=== PATIENT | male | born 1960 | race Two or more races ===

== ENCOUNTER 2025-03-19 08:45 | Day surgery (SDC) | payer MEDICARE, MEDICAID, SELFPAY ==
--- NOTE | 2025-03-16 06:35 | EKG_ITS ---
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
[2025-03-16 09:26] VITALS: BMI 27.2
[2025-03-16 10:05] LABS: Basophils # (Auto) 0.1 Thou/mm3 (0.0-0.2); Basophils % (Auto) 1 % (0-2.5); Eosinophils # (Auto) 1.8 Thou/mm3 (0.0-0.5); Eosinophils % (Auto) 12 % (0-10); Hematocrit 41.6 % (41.0-53.0); Hemoglobin 13.5 g/dL (13.5-16.0); Immature Granulocytes Auto 0.04 Thou/mm3 (0.00-0.00); Lymphocytes # (Auto) 3.2 Thou/mm3 (1.0-4.8); Lymphocytes % (Auto) 22 % (10-50); Mean Corpuscular HGB Conc 32.5 g/dl (31.0-37.0); Mean Corpuscular Hemoglobin 25.0 pg (25.0-35.0); Mean Corpuscular Volume 77 fL (80-100); Monocytes # (Auto) 1.1 Thou/mm3 (0.0-0.8); Monocytes % (Auto) 8 % (0-12); Neutrophils # (Auto) 8.5 Thou/mm3 (1.8-7.7); Neutrophils % (Auto) 58 % (37-80); Nucleated Red Blood Cell # 0.00 Thou/mm3 (0.00-0.00); Nucleated Red Blood Cell % 0 /100 WBC (0); Platelet Count 293 Thou/mm3 (140-440); RDW Standard Deviation 44.6 fL (35.1-43.9); Red Blood Count 5.40 Miln/mm3 (4.50-5.90); White Blood Count 14.7 Thou/mm3 (3.8-10.6)
[2025-03-16 10:14] LABS: INR 1.0 (0.9-1.3); Partial Thromboplastin Time 25.9 Seconds (22.0-36.0); Prothrombin Time 10.9 Seconds (9.0-12.2)
[2025-03-16 10:29] LABS: Alanine Aminotransferase < 7 U/L (10-49); Albumin, Serum 4.9 gm/dL (3.4-4.8); Albumin/Globulin Ratio 1.6 (1.2-2.2); Alkaline Phosphatase 94 U/L (46-116); Anion Gap 12 (7-16); Aspartate Amino Transferase 13 U/L (0-34); BUN/Creatinine Ratio 13 Ratio (12-20); Bilirubin,Total 0.4 mg/dL (0.3-1.2); Blood Urea Nitrogen 13 mg/dL (9-23); Calcium 9.2 mg/dL (8.3-10.6); Calcium (Corrected) 9.2 mg/dL (8.5-10.1); Carbon Dioxide 28.5 mMol/L (20.0-31.0); Chloride 104 mMol/L (98-107); Creatinine (Component) 1.0 mg/dL (0.6-1.3); Estimated Creatinine Clearance 71.3 mL/min (>60); Globulin 3.0 gm/dL (2.3-3.5); Glucose 135 mg/dL (74-106); Osmolality,Calculated 288 (275-295); Potassium 4.5 mMol/L (3.4-5.1); Sodium 144 mMol/L (136-145); Total Protein 7.9 gm/dL (5.7-8.2); eGFR > 60 See Note
--- NOTE | 2025-03-16 10:52 | SUR.PREOP ---
WBC 14.7, Dr Rivera notified. Stated he will check on pt and to keep surgery as schedule.
[2025-03-19] VITALS (8 sets, daily range): BP systolic 150–175; BP diastolic 81–89; PULSE 76–82; RESP 16–24; TEMP 36.3–36.4; O2SAT 92–100; BMI 26.9
--- NOTE | 2025-03-19 09:05 | XR_ITS ---
EXAMINATION: PA lateral chest 2 views TECHNIQUE: Upright PA lateral chest 2 views Date and time: March 19, 2025, 09 hours INDICATIONS: Coughing leukocytosis today FINDINGS: Normal heart size Lungs are clear. Intact osseous structures IMPRESSION: No active disease
[2025-03-19 09:25] LABS: Basophils # (Auto) 0.1 Thou/mm3 (0.0-0.2); Basophils % (Auto) 1 % (0-2.5); Eosinophils # (Auto) 1.2 Thou/mm3 (0.0-0.5); Eosinophils % (Auto) 9 % (0-10); Hematocrit 39.9 % (41.0-53.0); Hemoglobin 12.9 g/dL (13.5-16.0); Immature Granulocytes Auto 0.04 Thou/mm3 (0.00-0.00); Lymphocytes # (Auto) 3.5 Thou/mm3 (1.0-4.8); Lymphocytes % (Auto) 25 % (10-50); Mean Corpuscular HGB Conc 32.3 g/dl (31.0-37.0); Mean Corpuscular Hemoglobin 25.0 pg (25.0-35.0); Mean Corpuscular Volume 78 fL (80-100); Monocytes # (Auto) 1.0 Thou/mm3 (0.0-0.8); Monocytes % (Auto) 7 % (0-12); Neutrophils # (Auto) 8.3 Thou/mm3 (1.8-7.7); Neutrophils % (Auto) 59 % (37-80); Nucleated Red Blood Cell # 0.00 Thou/mm3 (0.00-0.00); Nucleated Red Blood Cell % 0 /100 WBC (0); Platelet Count 293 Thou/mm3 (140-440); RDW Standard Deviation 45.7 fL (35.1-43.9); Red Blood Count 5.15 Miln/mm3 (4.50-5.90); White Blood Count 14.2 Thou/mm3 (3.8-10.6)
[2025-03-19 09:42] LABS: Collection Type, Urine Clean Catch
[2025-03-19 09:46] LABS: Bilirubin,Urine Negative (Negative); Blood,Urine Trace (Negative); Clarity,Urine Clear (Clear/Hazy); Color,Urine Yellow (Lt Yel-Yel); Glucose, Urine Negative (Negative); Ketones,Urine Negative (Negative); Leukocyte Esterase,Urine Negative (Negative); Nitrite,Urine Negative (Negative); PH,Urine 5.5 (5.0-7.0); Protein,Urine Trace (Neg - Trace); RBC,Urine 1 /hpf (0-3); Specific Gravity,Urine 1.022 (1.001-1.035); Squamous Epithelial Cell,Urine < 1 /hpf (0-5); Urobilinogen,Urine Negative mg/dL (0.0-1.0); WBC,Urine < 1 /hpf (0-5)
[2025-03-19 09:53] LABS: COVID-19 Antigen (In-House) Negative (Negative)
--- NOTE | 2025-03-19 15:26 | ESOP_ITS ---
Date of Procedure 03/19/25 Pre Op Diagnosis Symptomatic right inguinoscrotal hernia Post Op Diagnosis Same Procedure Repair of the large right inguinoscrotal hernia with high ligation of the sac and reconstruction of the inguinal floor with 2 x 4 Marlex mesh Findings Patient was found to have a large inguinoscrotal hernia. The large portion of the omentum was going into the scrotum. The sac was so large and it contained about 8 to 10 inches of omentum which was very thick. Procedure Description The patient was brought to the operating room endotracheal anesthesia was given. Patient received 2 g of Ancef because of fungal infection over the right side of the scrotum. Patient also had unexplained mild leukocytosis of 14,200 for wh ich workup showed no cause. His chest x-ray and urinalysis were normal. Patient was therefore taken to the operating room and after anesthesia was given 2 g of Ancef. A Harrison catheter was inserted because of the large hernia and lower abdomen was prepped with ChloraPrep solution and draped in a sterile manner. Standard right groin incision was made after the timeout is performed. The incision was about 7 cm long. External oblique was incised but I could not encircle the cord structures because the hernial sac was so huge and was occupying the anterior groin. I tried to reduce the hernia from the scrotum but most of it this was stuck in the groin. Therefore I opened the sac and found out that patient had extensive contents containing about 8 to 10 inches of thick omentum. It also had some adhesions to the wall of the sac. The omentum was freed from these adhesions and with considerable difficulty reduced. The internal ring was very wide and the inside of suture ligation I used TA-30 to staple the sac after it was isolated. The cord structures were and and encircled around a Calypso drain. Then I removed a large amounts of cremaster and other tissues that were protruding out as a result of this longstanding hernia. After removing all the stitches I identified the defect. Patient had obviously weak hasselbach's triangle because of the presence of longstanding large indirect inguinal hernia. Patient also had a very patulous internal ring. Therefore he decided to reconstruct the floor by using a 2 x 4 Marlex mesh and attaching it superiorly to this internal oblique inferiorly to the shelving edge. Medially it was attached to the pubic tubercle. When the cord structures were reached a split was made in the mesh and it was not to occlude the internal ring. The mesh was tucked underneath the external oblique and 1 stitch was placed lateral to the cut surfaces. There are checked for the bleeding points I closed the external oblique with a running 2-0 Vicryl keeping the cord underneath. Subcutaneous tissue including the Gabriela's fascia was closed with a running 3-0 plain and injected large amounts of half percent Marcaine after which the skin was closed with 4-0 Monocryl subcuticular stitch. Dressing was applied with Adaptic and 4 x 4 gauze and patient tolerated the procedure well. The Harrison catheter was removed at the end of the procedure Anesthesia [employer] Implants Implants comments: 2 x 4 Marlex mesh to create the floor of the inguinal canal Pathology / specimen None IVF Infused 800 Estimated Blood Loss 40 Surgeon Samy Perkins MD Surgical Staff Operation Date: 03/19/25 13:15 Case Staff Anesthesiologist: Geronimo Benz RN First Assistant: Cordelia Ortega
--- NOTE | 2025-03-19 15:30 | SUR.PHASEI ---
pt arrived to PACU via gurney with oral airway present which was removed upon arrival, breathing unlabored, dressing to right inguinal region clean, dry, and intact, report from Farhat DUKES and Dr Benz
--- NOTE | 2025-03-19 15:45 | SUR.PHASEI ---
pt tolerating oral fluids without difficulty swallowing or n/v
--- NOTE | 2025-03-19 16:40 | SUR.PHASEII ---
pt awake alert, able to follow commands, breathing unlabored, dressing to right inguinal region clean, dry, and intact, discharge instructions given with son present using telephone security operations engineer Joaquín ID# [id number], pt able to dress self and ambulate to wheelchair with steady gait, pt discharged via wheelchair with all belongings and copies of discharge paperwork.
== END 2025-03-19 16:40 | disposition home or self-care (01) ==
PROVIDERS: PCP Physician Assistant; Referring Provider Surgery; Visit Provider Surgery
PROC: (CPT 49505; principal; 2025-03-19 13:00)
DX: K40.90 Unilateral inguinal hernia, without obstruction or gangrene, not specified as recurrent (principal); Z01.810 Encounter for preprocedural cardiovascular examination; E11.9 Type 2 diabetes mellitus without complications; I10 Essential (primary) hypertension; J45.909 Unspecified asthma, uncomplicated
CPT/HCPCS: 49505; 36415; 71046; 80053; 81001; 85025; 85610; 85730; 87811; 93005; A4649; C1781; J0131; J0690; J1100; J1885; J2250; J2405; J2704; J3010; J3490